=== PATIENT | female | born 1950 | race Caucasian/White ===

== ENCOUNTER 2022-03-14 12:20 | Emergency (ER) | payer OTHER ==
[2022-03-14 13:03] VITALS: BP 127/88; PULSE 90; TEMP 98.2; BMI 28.3
[2022-03-14] MEDS ORDERED: DEXAMETHASONE SOD PHOSPHATE 10 MG/1 ML VIAL IM ONE (16:07)
[2022-03-14] MEDS ORDERED: ACETAMINOPHEN 500 MG TABLET (FP) PO ONE (16:07)
[2022-03-15 12:08] LABS: SARS-CoV-2 NAA Not Detected (Not Detected)
== END 2022-03-14 16:29 | disposition home or self-care (01) ==
LOC: JER 12:20
PROC: 3E0233Z Introduction of Anti-inflammatory into Muscle, Percutaneous Approach (ICD-10-PCS; principal; 2022-03-14)
DX: J02.9 Acute pharyngitis, unspecified (principal); R09.81 Nasal congestion; R05.1 Acute cough
CPT/HCPCS: 87651; 87804; 99284-25; C9803-CS; J1100; U0003; U0005